=== PATIENT | female | born 2000 | race Caucasian/White ===

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

== ENCOUNTER 2020-05-14 17:07 | Emergency (ER) | payer OTHER, SELFPAY ==
[2020-05-14 17:18] VITALS: BP 122/73; PULSE 83; RESP 16; TEMP 36.1; O2SAT 100
--- NOTE | 2020-05-14 17:29 | ED.URI ---
HPI - URI/Sore Throat General Chief Complaint: Upper Respiratory Infection Stated Complaint: ear pain/sore throat Source: patient Mode of arrival: ambulatory Limitations: no limitations History of Present Illness HPI Narrative: Patient is a 19-year-old female who presents complaining of bilateral ear pain and sore throat x2 days. She denies fever, nausea, vomiting or cough. She denies known exposure to Covid. She denies taking [id number] medications for pain at this time. Patient has no significant medical history except for migraines. Related Data Home Medications Medication Instructions Recorded Confirmed Adult One Daily Multivitamin 1 cap PO DAILY 05/14/20 05/14/20 Adult Probiotic 1 tab-cap PO DAILY 05/14/20 05/14/20 B Complex-Iron 1 tab-cap PO DAILY 05/14/20 05/14/20 Co Q-10 1 tab-cap PO DAILY 05/14/20 05/14/20 Magnesia 500 mg PO DAILY 05/14/20 05/14/20 levocetirizine [Xyzal] 5 mg PO DAILY 05/14/20 05/14/20 levonorgestrel-ethinyl estrad 1 tablet PO DAILY 05/14/20 05/14/20 [Lessina] melatonin 10 mg PO DAILY 05/14/20 05/14/20 omeprazole 20 mg PO DAILY 05/14/20 05/14/20 ondansetron 4 mg PO PRN PRN 05/14/20 05/14/20 propranolol 10 mg PO BID 05/14/20 05/14/20 sumatriptan succinate 100 mg PO PRN PRN 05/14/20 05/14/20 Allergies Allergy/AdvReac Type Severity Reaction Status Date / Time Sulfa (Sulfonamide Allergy Rash Verified 05/14/20 17:27 Antibiotics) Review of Systems Review of Systems: Narrative: CONSTITUTIONAL: Denies fever, chills, or sweats. EYES: Denies visual changes, redness, or discharge. ENT: Sore throat and otalgia x2 days CARDIOVASCULAR: Denies chest pain, palpitations, or edema. RESPIRATORY: Denies cough or dyspnea. GASTROINTESTINAL: Denies abdominal pain, nausea, vomiting, or diarrhea. GENITOURINARY: Denies dysuria or hematuria. SKIN: Denies rash or itching. MUSCULOSKELETAL: Denies back pain, joint pain, or myalgia. NEUROLOGIC: Denies headache, numbness, dizziness, or weakness. PSYCHIATRIC: Denies anxiety or depression. [facility] Past Medical History Medical History (Updated 05/14/20 @ 17:48 by SHARA Alexander) Migraines No significant family history Surgical History Surgical History (Updated 05/14/20 @ 17:31 by SHARA Alexander) No significant past surgical history Family History Family History (Updated 05/14/20 @ 17:31 by SHARA Alexander) Other No significant family history Social History Social History (Updated 05/14/20 @ 17:32 by SHARA Alexander) Smoking status: Never smoker Alcohol intake: never Substance use: never Living arrangements: with roommate(s) Occupation/Education: occupation Comments At the time of signature, I have reviewed and agree with nursing past medical, surgical, social, and family history unless otherwise noted. Please see nursing chart for further information. There is no relevant family history pertinent to the presenting complaint. Exam Narrative: Exam Narrative: GENERAL: Well-appearing, well-nourished, and in no acute distress. HEAD: Normocephalic, atraumatic. EYES: EOMI. No redness or drainage. Conjunctiva are normal. ENT: Mucous membranes pink and moist. Nares clear. Positive rhinorrhea. TMs normal bilaterally. Throat erythema, edema and exudate noted. Uvula midline. NECK: AROM. Supple. Cervical lymphadenopathy noted. CHEST: No respiratory distress. HEART: Regular rate and rhythm. EXTREMITIES: Normal range of motion. No edema. SKIN: Warm, dry, no rash. NEURO: No focal deficits. Alert and oriented x3. Gait steady. PSYCH: Normal affect. No signs of depression or anxiety. Course Vital Signs Vital signs: Vital Signs Temperature 36.1 C L 05/14/20 17:18 Pulse Rate 83 05/14/20 17:18 Respiratory Rate 16 05/14/20 17:18 Blood Pressure 122/73 05/14/20 17:18 Pulse Oximetry 100 05/14/20 17:18 Temperature 36.1 C L 05/14/20 17:18 Pulse Rate 83 05/14/20 17:18 Respiratory
== END 2020-05-14 17:50 | disposition home or self-care (01) ==
PROVIDERS: Emergency Provider Nurse Practitioner
DX: J03.80 Acute tonsillitis due to other specified organisms (principal)
CPT/HCPCS: 87081; 87880; 99213; G0463

== ENCOUNTER 2020-09-01 15:49 | Emergency (ER) | payer OTHER, SELFPAY ==
[2020-09-01 15:57] VITALS: BP 118/63; PULSE 77; RESP 16; TEMP 36.9; O2SAT 98
--- NOTE | 2020-09-01 16:07 | ED.FEMALEGU ---
HPI - Female Genitourinary General Chief complaint: Urogenital-Female Stated complaint: NAUSEA/LOWER R ABD PAIN History of Present Illness HPI Narrative: This is a 19-year-old that has a chronic history of UTIs according to patient Friday she started having some abdominal pain and some burning with urination as well as some pressure. Patient initially denied any frequency but states that today she had the frequency urgency burning right-sided abdominal pain as well as nausea patient took some oral medication for nausea and it has subsided. Related Data Home Medications Medication Instructions Recorded Confirmed Adult One Daily Multivitamin 1 cap PO DAILY 05/14/20 05/14/20 Adult Probiotic 1 tab-cap PO DAILY 05/14/20 05/14/20 B Complex-Iron 1 tab-cap PO DAILY 05/14/20 05/14/20 Co Q-10 1 tab-cap PO DAILY 05/14/20 05/14/20 Magnesia 500 mg PO DAILY 05/14/20 05/14/20 levocetirizine [Xyzal] 5 mg PO DAILY 05/14/20 05/14/20 levonorgestrel-ethinyl estrad 1 tablet PO DAILY 05/14/20 05/14/20 [Lessina] melatonin 10 mg PO DAILY 05/14/20 05/14/20 omeprazole 20 mg PO DAILY 05/14/20 05/14/20 ondansetron 4 mg PO PRN PRN 05/14/20 05/14/20 propranolol 10 mg PO BID 05/14/20 05/14/20 sumatriptan succinate 100 mg PO PRN PRN 05/14/20 05/14/20 Allergies Allergy/AdvReac Type Severity Reaction Status Date / Time Sulfa (Sulfonamide Allergy Rash Verified 05/14/20 17:27 Antibiotics) Review of Systems Review of Systems: Narrative: CONSTITUTIONAL: Denies fever, chills, or sweats. EYES: Denies visual changes, redness, or discharge. ENT: Denies rhinorrhea, congestion, sore throat, or otalgia. CARDIOVASCULAR:Denies chest pain, palpitations, or edema. RESPIRATORY: Denies cough or dyspnea. GASTROINTESTINAL: Denies abdominal pain, nausea, vomiting, or diarrhea. GENITOURINARY: Reports dysuria or hematuria. SKIN:[Denies rash or itching. MUSCULOSKELETAL:Denies back pain, joint pain, or myalgia. NEUROLOGIC: Denies headache, numbness, or weakness. PSYCHIATRIC:Denies anxiety or depression PMFSH Past Medical History Medical History (Updated 09/01/20 @ 16:17 by Antonio العلي NP) Migraines No significant family history Surgical History Surgical History (Updated 05/14/20 @ 17:31 by SHARA Alexander) No significant past surgical history Family History Family History (Updated 05/14/20 @ 17:31 by SHARA Alexander) Other No significant family history Social History Social History (Updated 05/14/20 @ 17:32 by SHARA Alexander) Smoking status: Never smoker Alcohol intake: never Substance use: never Comments At time as signature, I have reviewed and agree with nursing past medical, social, surgical and family history. Please see nursing chart for further information. There is no relevant family history pertinent to the presenting complaint. Exam Narrative: Exam Narrative: GENERAL:Well-appearing, well-nourished, and in no acute distress. HEAD:Normocephalic, atraumatic. EYES: PERRLA and EOMI. ENT: Nares clear, no rhinorrhea or epistaxis. Mucous membranes moist. NECK: Supple. CHEST: Clear to auscultation. No respiratory distress. HEART: Regular rate and rhythm. No murmur heard. Normal peripheral pulses. ABDOMEN: Soft, nontender, nondistended, normal active bowel sounds. Dysuria, frequency, urgency slight nausea but has since subsided EXTREMITIES: Normal range of motion. No edema. SKIN: Warm, dry, no rash. NEURO: No focal deficits. Alert and oriented x3. Discussion with patient to make sure that she follows up quicker and not to wait so long monitor for fever Course Vital Signs Vital signs: Vital Signs Temperature 98.4 F 09/01/20 15:57 Pulse Rate 77 09/01/20 15:57 Respiratory Rate 16 09/01/20 15:57 Blood Pressure 118/63 09/01/20 15:57 Pulse Oximetry 98 09/01/20 15:57 Temperature 98.4 F 09/01/20 15:57 Pulse Rate 77 09/01/20 15:57 Respiratory Rate 16 09/01/20 15:57 Bloo
== END 2020-09-01 16:25 | disposition home or self-care (01) ==
PROVIDERS: Emergency Provider Nurse Practitioner Family
DX: N12 Tubulo-interstitial nephritis, not specified as acute or chronic (principal); N39.0 Urinary tract infection, site not specified; B96.20 Unspecified Escherichia coli [E. coli] as the cause of diseases classified elsewhere
CPT/HCPCS: 81003; 87077; 87086; 87088; 87186; 99213; G0463

== ENCOUNTER 2020-10-08 17:02 | Emergency (ER) | payer OTHER, SELFPAY ==
--- NOTE | 2020-10-08 17:08 | ED.GENADULT ---
HPI - General Adult General Chief complaint: Ear Stated complaint: sinus issues Time Seen by Provider: 10/08/20 17:09 Source: patient Mode of arrival: ambulatory Limitations: no limitations History of Present Illness HPI narrative: 19-year-old female patient presents to the [facility] with complaints of sinus issues for the past 2 days. Patient states she had a fever this morning of low 100s. Patient states she has been having pressure above the left eye and under bilateral eyes as well as pressure to the bilateral ears and congestion. Patient states she has had a little bit of coughing and slight sneezing. Patient states she took some Benadryl last night and some Tylenol this morning. Patient states she is fully vaccinated for COVID-19. Related Data Home Medications Medication Instructions Recorded Confirmed levocetirizine [Xyzal] 5 mg PO DAILY 05/14/20 05/14/20 levonorgestrel-ethinyl estrad 1 tablet PO DAILY 05/14/20 05/14/20 [Lessina] omeprazole 20 mg PO DAILY 05/14/20 05/14/20 ondansetron 4 mg PO PRN PRN 05/14/20 05/14/20 sumatriptan succinate 100 mg PO PRN PRN 05/14/20 05/14/20 Allergies Allergy/AdvReac Type Severity Reaction Status Date / Time Sulfa (Sulfonamide Allergy Rash Verified 10/08/20 17:09 Antibiotics) Review of Systems Review of Systems: Narrative: CONSTITUTIONAL: Positive subjective fever, denies chills, or sweats. EYES: Denies visual changes, redness, or discharge. ENT: Denies rhinorrhea, positive congestion, sore throat, positive bilateral otalgia. CARDIOVASCULAR: Denies chest pain, palpitations, or edema. RESPIRATORY: Positive mild nonproductive cough, denies dyspnea. GASTROINTESTINAL: Denies abdominal pain, nausea, vomiting, or diarrhea. GENITOURINARY: Denies dysuria or hematuria. SKIN: Denies rash or itching. MUSCULOSKELETAL: Denies back pain, joint pain, or myalgia. NEUROLOGIC: Positive headache, denies numbness, or weakness. PSYCHIATRIC: Denies anxiety or depression. [facility] Past Medical History Medical History Migraines No significant family history Surgical History Surgical History No significant past surgical history Family History Family History Other No significant family history Social History Social History Smoking status: Never smoker Alcohol intake: never Substance use: never Comments At the time of my signature I agree with nursing past medical history, surgical, social, and family history. There is no relevant family history pertinent to the presenting complaint. Exam Narrative: Exam Narrative: GENERAL: Well-appearing, well-nourished, and in no acute distress. HEAD: Normocephalic, atraumatic. Slight tenderness noted to maxillary sinuses on palpation EYES: PERRLA and EOMI. ENT: Nares clear, no rhinorrhea or epistaxis. Mucous membranes moist. Posterior pharynx no erythema, tonsillar Kym, exudates or lesions present. Bilateral TMs are clear with no erythema or foreign bodies in the canal. NECK: Supple. No lymphadenopathy CHEST: Clear to auscultation. No respiratory distress. HEART: Regular rate and rhythm. No murmur heard. Normal peripheral pulses. ABDOMEN: Soft, nontender, nondistended, normal active bowel sounds. EXTREMITIES: Normal range of motion. No edema. SKIN: Warm, dry, no rash. NEURO: No focal deficits. Alert and oriented x3. Course Reevaluation(s) Reevaluation #1: Reevaluated patient notified her that her Covid test as well as her strep test are negative today. Discussed with her that we will go ahead and treat her sinuses today with a daily antihistamine and a nasal steroid. Demonstrated to patient how to use a nasal steroid. Discussed with her that this should help with some of the pressure but at this time I do not thin
[2020-10-08 17:12] VITALS: BP 115/75; PULSE 117; RESP 16; TEMP 37.3; O2SAT 99
[2020-10-10 17:52] LABS: SARS-CoV-2 RNA PCR Negative
== END 2020-10-08 17:53 | disposition home or self-care (01) ==
PROVIDERS: Emergency Provider Nurse Practitioner Family
DX: J30.9 Allergic rhinitis, unspecified (principal); Z20.822 Contact with and (suspected) exposure to COVID-19
CPT/HCPCS: 87081; 87426; 87880; 99213; C9803; G0463; U0003; U0005

== ENCOUNTER 2020-11-30 18:06 | Emergency (ER) | payer OTHER, SELFPAY ==
--- NOTE | 2020-11-30 18:08 | ED.FEMALEGU ---
HPI - Female Genitourinary General Chief complaint: Urogenital-Female Stated complaint: POS UTI Time Seen by Provider: 11/30/20 18:09 Source: patient and RN notes reviewed History of Present Illness HPI Narrative: Patient is a 20-year-old female who presents the urgent care with complaints of a possible UTI. Patient states that yesterday she woke up with painful urination. Patient states it resolved and then this morning she woke up again with increased painful urination, frequency and believes she may have passed a kidney stone. Patient denies of any history of kidney stones but has had UTIs in the past to the point where she had a urologist. Patient denies of any fever, nausea, vomiting. Patient has not taken anything [id number] for his symptoms. No other acute complaints. No acute distress noted. Patient read the plan of care. Some parts of this dictation were generated by voice recognition software and may contain typographical and/or grammatical inaccuracies. MD elicited complaint: vaginal bleeding Related Data Home Medications Medication Instructions Recorded Confirmed levonorgestrel-ethinyl estrad 1 tablet PO DAILY 05/14/20 05/14/20 [Lessina] omeprazole 20 mg PO DAILY 05/14/20 05/14/20 ondansetron 4 mg PO PRN PRN 05/14/20 05/14/20 sumatriptan succinate 100 mg PO PRN PRN 05/14/20 05/14/20 Allergies Allergy/AdvReac Type Severity Reaction Status Date / Time Sulfa (Sulfonamide Allergy Rash Verified 10/08/20 17:09 Antibiotics) Review of Systems Review of Systems: CONSTITUTIONAL: Denies fever, chills, or sweats. EYES: Denies visual changes, redness, or discharge. ENT: Denies rhinorrhea, congestion, sore throat, or otalgia. CARDIOVASCULAR: Denies chest pain, palpitations, or edema. RESPIRATORY: Denies cough or dyspnea. GASTROINTESTINAL: Denies abdominal pain, nausea, vomiting, or diarrhea. GENITOURINARY: Reports of dysuria, urinary frequency, and possible kidney stone SKIN: Denies rash or itching. MUSCULOSKELETAL: Denies back pain, joint pain, or myalgia. NEUROLOGIC: Denies headache, numbness, or weakness. All other systems reviewed are negative, except as documented in HPI. [facility] Past Medical History Medical History Migraines No significant family history Surgical History Surgical History No significant past surgical history Family History Family History Other No significant family history Social History Social History Smoking status: Never smoker Alcohol intake: never Substance use: never Comments At the time of my signature, I reviewed and agree with the nursing past medical, surgical, social, and family history. There is no relevant family history pertinent to the patient complaint. Exam Narrative: GENERAL: This is a well-nourished, well-developed patient, in no apparent distress. HEAD: normocephalic, atraumatic. EYES: PERRL. Sclera clear/white. Vision is grossly intact. EARS: External ears normal NOSE: External nose normal with no obvious nasal discharge, nares without redness, no rhinorrhea. THROAT: Mucous membranes moist NECK: Neck supple CARDIOVASCULAR: Regular rate and rhythm without murmurs, gallops, or rubs. RESPIRATORY: Clear to auscultation. Breath sounds equal bilaterally. No wheezes, rales, or rhonchi. SKIN: warm, intact with no suspicious lesions or rash, good texture and turgor. NEURO: awake, alert, and oriented to person, place and time. There were no obvious focal neurologic abnormalities. EXTREMITIES: No clubbing, cyanosis, or edema. BACK: Negative bilateral CVA tenderness Course Vital Signs Vital signs: Vital Signs Temperature 97.8 F 11/30/20 18:10 Pulse Rate 76 11/30/20 18:10 Respiratory Rate 16 11/30/20 18:10 Blood Pre
[2020-11-30 18:10] VITALS: BP 124/74; PULSE 76; RESP 16; TEMP 36.6; O2SAT 99
== END 2020-11-30 18:34 | disposition home or self-care (01) ==
PROVIDERS: Emergency Provider Nurse Practitioner Family
DX: N39.0 Urinary tract infection, site not specified (principal)
CPT/HCPCS: 81003; 87086; 99213; G0463

== ENCOUNTER 2021-07-03 16:27 | Emergency (ER) | payer OTHER, SELFPAY ==
--- NOTE | ~2021-07-03 | XR_ITS ---
EXAM: XR forearm RT 2V HISTORY: PAIN/bruising radial side prox Rt forearm COMPARISON: None available FINDINGS: Normal mineralization. No fracture or dislocation. No lytic or blastic lesion. Joint space s maintained. No erosion or periosteal change. Soft tissues within normal limits. IMPRESSION: Normal right forearm radiograph findings. Reviewed, dictated and finalized at location K.
[2021-07-03 16:33] VITALS: BP 120/77; PULSE 70; RESP 16; TEMP 36.5; O2SAT 99
--- NOTE | 2021-07-03 16:37 | ED.UPPEXIN ---
HPI - Extremity Injury (Upper) General Chief Complaint: Extremity Injury, Upper Stated Complaint: INJURED R ARM Time Seen by Provider: 07/03/21 16:37 Source: patient Mode of arrival: ambulatory Limitations: no limitations History of Present Illness HPI narrative: 20-year-old female presents with complaint of bruising to right forearm. States that she hit her lotion bottle really hard on her right forearm and thinks that she has a fracture. Patient has normal range of motion to right arm. Complaining of pain with flexion of right wrist. All systems reviewed and negative except as noted above. Related Data Home Medications Medication Instructions Recorded Confirmed levonorgestrel-ethinyl estrad 1 tablet PO DAILY 05/14/20 05/14/20 [Lessina] omeprazole 20 mg PO DAILY 05/14/20 05/14/20 ondansetron 4 mg PO PRN PRN 05/14/20 05/14/20 sumatriptan succinate 100 mg PO PRN PRN 05/14/20 05/14/20 Allergies Allergy/AdvReac Type Severity Reaction Status Date / Time Sulfa (Sulfonamide Allergy Rash Verified 10/08/20 17:09 Antibiotics) Review of Systems Review of Systems: CONSTITUTIONAL: Denies fever, chills, or sweats. EYES: Denies visual changes, redness, or discharge. ENT: Denies rhinorrhea, congestion, sore throat, or otalgia. CARDIOVASCULAR: Denies chest pain, palpitations, or edema. RESPIRATORY: Denies cough or dyspnea. GASTROINTESTINAL: Denies abdominal pain, nausea, vomiting, or diarrhea. GENITOURINARY: Denies dysuria or hematuria. SKIN: Denies rash or itching. MUSCULOSKELETAL: Denies back pain, joint pain, or myalgia. Reports bruising and pain to right forearm. NEUROLOGIC: Denies headache, numbness, or weakness. PSYCHIATRIC: Denies anxiety or depression. All other systems reviewed are negative, except as documented in HPI. [facility] Past Medical History Medical History Migraines No significant family history Surgical History Surgical History No significant past surgical history Family History Family History Other No significant family history Social History Social History Smoking status: Never smoker Alcohol intake: never Substance use: never Comments At time of signature, agree with nursing past medical, surgical, social and family history. There is no relevant family history pertinent to the presenting complaint. Exam Narrative: GENERAL: This is a well-nourished, well-developed patient, in no apparent distress. HEAD: normocephalic, atraumatic. EYES: PERRL. Sclera clear/white. Vision is grossly intact. EARS: External ears normal NOSE: External nose normal . NECK: Neck supple, non-tender without lymphadenopathy, masses or thyromegaly. CARDIOVASCULAR: Regular rate and rhythm without murmurs, gallops, or rubs. RESPIRATORY: Clear to auscultation. Breath sounds equal bilaterally. No wheezes, rales, or rhonchi. SKIN: warm, Dry, intact with no suspicious lesions or rash, good texture and turgor. NEURO: awake, alert, and oriented to person, place and time. There were no obvious focal neurologic abnormalities. EXTREMITIES: No joint tenderness, effusion, or edema noted. Tenderness to proximal aspect right forearm over contusion. Range of motion intact. Right radial pulse 2+. Extrem: Elbow/forearm/wrist images: 1. Small contusion Course Course Level of Care: Express Care Visit Vital Signs Vital signs: Vital Signs Temperature 36.5 C 07/03/21 16:33 Pulse Rate 70 07/03/21 16:33 Respiratory Rate 16 07/03/21 16:33 Blood Pressure 120/77 07/03/21 16:33 Pulse Oximetry 99 07/03/21 16:33 Temperature 36.5 C 07/03/21 16:33 Pulse Rate 70 07/03/21 16:33 Respiratory Rate 16 07/03/21 16:33 Blood Pressure 120/77 07/03/21 16:33 Pulse Oximetry 99 0
== END 2021-07-03 17:00 | disposition home or self-care (01) ==
PROVIDERS: Emergency Provider Nurse Practitioner Family
DX: S50.11XA Contusion of right forearm, initial encounter (principal); W22.8XXA Striking against or struck by other objects, initial encounter
CPT/HCPCS: 73090; 99213; G0463

== ENCOUNTER 2022-02-28 17:19 | Emergency (ER) | payer OTHER, SELFPAY ==
--- NOTE | ~2022-02-28 | XR_ITS ---
XR elbow RT min 3V 02/28/2022 18:11 INDICATION: Right elbow pain PROCEDURE: 4 views right elbow COMPARISON: No prior studies for comparison. FINDINGS: Fracture, dislocation or subluxation is not identified. No significant joint effusion. The soft tissues appear within normal limits. No foreign bodies are identified. IMPRESSION: 1: NO ACUTE BONE OR JOINT ABNORMALITY IDENTIFIED. Reviewed, dictated and finalized at location [facility]
[2022-02-28 17:36] VITALS: BP 118/77; PULSE 84; RESP 16; TEMP 37.3; O2SAT 100
[2022-02-28 17:40] VITALS: BP 118/77; PULSE 84; RESP 16; TEMP 37.3; O2SAT 100
--- NOTE | 2022-02-28 18:09 | ED.UPPEXIN ---
HPI - Extremity Injury (Upper) General Chief Complaint: Extremity Injury, Upper Stated Complaint: injury to right elbow Time Seen by Provider: 02/28/22 18:15 Source: patient Mode of arrival: ambulatory Limitations: no limitations History of Present Illness HPI narrative: 21-year-old female presents with pain and bruising to right elbow. States 4 days ago she was looking her kitchen cabinets for something and hit her elbow down hard on counter. Reports pain with movement, shooting pains into hand when lifting. Noticed bruising yesterday. Range of motion and distal neurovascularly intact. All systems reviewed and negative except as noted above. Related Data Home Medications Medication Instructions Recorded Confirmed levonorgestrel-ethinyl estradiol 1 tablet PO DAILY 05/14/20 02/28/22 0.1 mg-20 mcg tablet (Lessina) ondansetron 4 mg disintegrating 4 mg PO PRN PRN Nausea 05/14/20 02/28/22 tablet sumatriptan succinate 100 mg tablet 100 mg PO PRN PRN Headache 05/14/20 02/28/22 citalopram 10 mg tablet 10 mg PO DAILY 02/28/22 02/28/22 diazepam 2 mg tablet 2 mg PO HS 02/28/22 02/28/22 dicyclomine 10 mg capsule 10 mg PO Q6H PRN Abdominal Pain 02/28/22 02/28/22 pantoprazole 40 mg tablet,delayed 40 mg PO DAILY 02/28/22 02/28/22 release propranolol 20 mg tablet 20 mg PO DAILY 02/28/22 02/28/22 ubrogepant 100 mg tablet (Ubrelvy) 100 mg PO USEASDIRECTD 02/28/22 02/28/22 Allergies Allergy/AdvReac Type Severity Reaction Status Date / Time Sulfa (Sulfonamide Allergy Rash Verified 02/28/22 17:39 Antibiotics) Review of Systems Review of Systems: CONSTITUTIONAL: Denies fever, chills, or sweats. EYES: Denies visual changes, redness, or discharge. ENT: Denies rhinorrhea, congestion, sore throat, or otalgia. CARDIOVASCULAR: Denies chest pain, palpitations, or edema. RESPIRATORY: Denies cough or dyspnea. GASTROINTESTINAL: Denies abdominal pain, nausea, vomiting, or diarrhea. GENITOURINARY: Denies dysuria or hematuria. SKIN: Denies rash or itching. MUSCULOSKELETAL: Reports pain and swelling to right elbow. NEUROLOGIC: Denies headache, numbness, or weakness. PSYCHIATRIC: Denies anxiety or depression. All other systems reviewed are negative, except as documented in HPI. PMFSH Past Medical History Medical History Migraines No significant family history Surgical History Surgical History No significant past surgical history Family History Family History Other No significant family history Social History Social History Smoking status: Never smoker Alcohol intake: never Substance use: never Comments At time of signature, agree with nursing past medical, surgical, social and family history. There is no relevant family history pertinent to the presenting complaint. Exam Narrative: GENERAL: This is a well-nourished, well-developed patient, in no apparent distress. HEAD: normocephalic, atraumatic. EYES: PERRL. Sclera clear/white. Vision is grossly intact. EARS: External ears normal NOSE: External nose normal NECK: Neck supple, non-tender without lymphadenopathy, masses or thyromegaly. CARDIOVASCULAR: Regular rate and rhythm without murmurs, gallops, or rubs. RESPIRATORY: Clear to auscultation. Breath sounds equal bilaterally. No wheezes, rales, or rhonchi. SKIN: warm, Dry, intact with no suspicious lesions or rash, good texture and turgor. NEURO: awake, alert, and oriented to person, place and time. There were no obvious focal neurologic abnormalities. EXTREMITIES: mild swelling, small contusion, tender lateral aspect R elbow Course Course Level of Care: Express Care Visit Vital Signs Vital signs: Vital Signs Temperature 37.3 C 02/28/22 17:36 Pulse Rate 84 02/28/22 17:36
== END 2022-02-28 18:30 | disposition home or self-care (01) ==
LOC: EXPGOSH 17:22
PROVIDERS: Emergency Provider Nurse Practitioner Family
DX: S50.01XA Contusion of right elbow, initial encounter (principal); W22.09XA Striking against other stationary object, initial encounter; F41.9 Anxiety disorder, unspecified
CPT/HCPCS: 73080; 99213; G0463

== ENCOUNTER 2022-05-22 18:51 | Emergency (ER) | payer OTHER, SELFPAY ==
[2022-05-22 19:00] VITALS: BP 124/82; PULSE 86; RESP 16; TEMP 37; O2SAT 100
--- NOTE | 2022-05-22 19:07 | ED.EAR ---
HPI - Ear Problem General Chief complaint: Ear Stated complaint: EARACHE Time Seen by Provider: 05/22/22 19:07 Source: patient Mode of arrival: ambulatory Limitations: no limitations History of Present Illness HPI Narrative: patient is a 21-year-old female that presents with left ear pain. states 2 months ago left ear canal was swollen shut and tender, Went away on its own. now having swelling in the same ear along with pain outside of ear. has not tried any medication. Has ENT follow-up back home in [place]. Complaint: ear pain Related Data Home Medications Medication Instructions Recorded Confirmed levonorgestrel-ethinyl estradiol 1 tablet PO DAILY 05/14/20 05/22/22 0.1 mg-20 mcg tablet ([facility]) Allergies Allergy/AdvReac Type Severity Reaction Status Date / Time Sulfa (Sulfonamide Allergy Rash Verified 05/22/22 18:57 Antibiotics) Review of Systems Review of Systems: CONSTITUTIONAL: Denies malaise, chills, sweats, or fever.? EYES: Denies visual changes, redness, or discharge.? ENT: denies rhinorrhea, congestion, sore throat.? reports left otalgia CARDIOVASCULAR: Denies chest pain, palpitations, or edema.? RESPIRATORY: Denies dyspnea and cough? GASTROINTESTINAL: Denies abdominal pain, nausea, vomiting, diarrhea? SKIN: Denies rash or itching.? MUSCULOSKELETAL: Denies myalgia.? NEUROLOGIC: Denies headache All systems reviewed & are unremarkable except as noted in HPI and below PMFSH Past Medical History Medical History Migraines No significant family history Surgical History Surgical History No significant past surgical history Family History Family History Other No significant family history Social History Social History Smoking status: Never smoker Alcohol intake: never Substance use: never Living arrangements: with roommate(s) Occupation/Education: occupation Comments At time of signature, agree with nursing past medical, surgical, social and family history. There is no relevant family history pertinent to the presenting complaint? Exam Narrative: GENERAL: Well-appearing, well-nourished, and in no acute distress.? HEAD: Normocephalic, atraumatic.? EYES: PERRLA, conjunctivae clear, and EOMI.? ENT: Nares clear, turbinates pink, no rhinorrhea or epistaxis. Mucous membranes moist. TM pearly howe with sharp light reflex bilaterally, left ear canal edema; left side tragal tenderness no pre or post articular erythema or edema. Oropharynx without erythema or lesions. Tonsils not enlarged and without exudate.? NECK: Supple. No lymphadenopathy. ? CHEST: No respiratory distress. Clear to auscultation.? No bony deformities, no asymmetry. Speaks in full sentences.? HEART: Regular rate and rhythm. SKIN: Warm, dry, no rash.? NEURO: Alert and oriented x3. No focal deficits. PSYCH: Normal mood and affect? Course Course Emergency Course: Patient is aware of diagnosis, understands and agrees to treatment plan.? Anticipatory guidance given.? Patient agrees to follow-up as directed and is aware of reasons to seek care at the emergency department.? Portions of this record may have been created with voice recognition software? Level of Care: Express Care Visit Vital Signs Vital signs: Vital Signs Temperature 37.0 C 05/22/22 19:00 Pulse Rate 86 05/22/22 19:00 Respiratory Rate 16 05/22/22 19:00 Blood Pressure 124/82 05/22/22 19:00 Pulse Oximetry 100 05/22/22 19:00 Temperature 37.0 C 05/22/22 19:00 Pulse Rate 86 05/22/22 19:00 Respiratory Rate 16 05/22/22 19:00 Blood Pressure 124/82 05/22/22 19:00 Pulse Oximetry 100 05/22/22 19:00 Reviewed Medical Decision Making MDM Narrative Medical decision making narrative: Misael
== END 2022-05-22 19:37 | disposition home or self-care (01) ==
PROVIDERS: Emergency Provider Nurse Practitioner Family
DX: H66.92 Otitis media, unspecified, left ear (principal)
CPT/HCPCS: 99213; G0463

== ENCOUNTER 2022-10-10 08:35 | Emergency (ER) | payer OTHER, SELFPAY ==
--- NOTE | 2022-10-10 08:44 | ED.GENADULT ---
HPI - General Adult General Chief complaint: Dizziness Stated complaint: LIGHT HEADED/DIZZY/STOMACH Time Seen by Provider: 10/10/22 08:52 Source: patient, RN notes reviewed and old records reviewed Mode of arrival: ambulatory Limitations: no limitations History of Present Illness HPI narrative: 21-year-old female presents to the [facility] with complaints of feeling dizzy, lightheaded, upset stomach. Patient states that started on 24 September with nausea vomiting and diarrhea. Has had intermittent dizzy spells since. Has not seek treatment. States that she currently has no symptoms. During the symptoms or spells she says the room feels like it is spinning, and she feels unsteady. Patient reports last week she felt so dizzy after leaving work that she had to sit in her car for an hour. Denies any blurry vision. Denies any shortness of breath or chest pain during episodes. Denies any that her heart feels like it is racing. Denies any headaches with episodes. Denies any recent fevers States that she had a history ear infections and feels that may be an issue but denies any ear pain Onset (ago): week(s) (2.5) Related Data Home Medications Medication Instructions Recorded Confirmed levonorgestrel-ethinyl estradiol 1 tablet PO DAILY 05/14/20 10/10/22 0.1 mg-20 mcg tablet ([facility]) Allergies Allergy/AdvReac Type Severity Reaction Status Date / Time Sulfa (Sulfonamide Allergy Rash Verified 05/22/22 18:57 Antibiotics) Review of Systems Review of Systems: All systems reviewed & are unremarkable except as noted in HPI and below Constitutional: Constitutional: Reports no additional constitutional complaints Eyes: Eyes: Reports no additional eye complaints ENT: Reports as per HPI and Reports dizziness Cardiovascular: Cardiovascular: Reports no additional cardiovascular complaints, Denies chest pain and Denies dyspnea Respiratory: Respiratory: Reports no additional respiratory complaints, Denies chest congestion, Denies cough and Denies dyspnea Gastrointestinal: Gastrointestinal: Reports no additional gastrointestinal complaints, Denies abdominal pain, Denies nausea and Denies vomiting Musculoskeletal: Musculoskeletal: Reports no additional musculoskeletal complaints Integumentary/Breasts: Skin/Breast: Reports system reviewed and no additional complaints, except as docu Neurologic: Reports system reviewed and no additional complaints, except as documented Psychiatric: Psychiatric: Reports no additional psychiatric complaints Allergic/Immunologic: Allergic/Immunologic: Reports no additional allergic/immunologic complaints PMFSH Past Medical History Medical History Migraines No significant family history Surgical History Surgical History No significant past surgical history Family History Family History Other No significant family history Social History Social History Smoking status: Never smoker Alcohol intake: never Substance use: never Living arrangements: with roommate(s) Occupation/Education: occupation Comments At the time of my signature, I reviewed and agree with the nursing past medical, surgical, social, and family history. There is no relevant family history pertinent to the patient complaint. Exam Const: General: cooperative, healthy appearing, comfortable, no acute distress, well developed, alert and well nourished Nutritional Appearance: well nourished Orientation/consciousness: patient oriented x3 Limitations: no limitations HENMT: Head: normal to inspection Ears: hearing grossly normal bilaterally, external ears normal, TM's normal bilaterally and EAC's normal Face/Nose/Sinus: Normal external nose present, Normal nares present, Normal nasal mucous membrane
[2022-10-10 08:54] VITALS: BP 104/75; PULSE 68; RESP 16; TEMP 36.7; O2SAT 100
== END 2022-10-10 09:08 | disposition home or self-care (01) ==
PROVIDERS: Emergency Provider Nurse Practitioner
DX: R42 Dizziness and giddiness (principal)
CPT/HCPCS: 99213; G0463

== ENCOUNTER 2023-01-13 17:40 | Emergency (ER) | payer OTHER, SELFPAY ==
--- NOTE | 2023-01-13 17:41 | ED.URI ---
HPI - URI/Sore Throat General Chief Complaint: Upper Respiratory Infection Stated Complaint: Sinus Infection Time Seen by Provider: 01/13/23 17:40 Source: patient Mode of arrival: ambulatory Limitations: no limitations History of Present Illness HPI Narrative: Ana Puala is a 22-year-old female patient presenting to the clinic today with complaints of a possible sinus infection x8 days. She reports she is bringing up green and yellow nasal discharge with a lot of sinus pressure and headaches. No fever or chills. Does have a lot of postnasal drip and a sore throat. MD elicited complaint: sore throat and nasal congestion Related Data Home Medications Medication Instructions Recorded Confirmed levonorgestrel-ethinyl estradiol 1 tablet PO DAILY 05/14/20 01/13/23 0.1 mg-20 mcg tablet ([facility]) fluticasone propionate 50 2 spray intranasal DAILY 01/13/23 01/13/23 mcg/actuation nasal spray,suspension Allergies Allergy/AdvReac Type Severity Reaction Status Date / Time Sulfa (Sulfonamide Allergy Rash Verified 01/13/23 17:47 Antibiotics) Review of Systems Review of Systems: Pertinent positives per HPI. Patient denies any fever, chills, rash, visual changes, dizziness, shortness of breath, chest pain, palpitations, nausea, vomiting, diarrhea, constipation, abdominal pain, or any urinary issues. PMFSH Past Medical History Medical History Migraines No significant family history Surgical History Surgical History No significant past surgical history Family History Family History Other No significant family history Social History Social History Smoking status: Never smoker Alcohol intake: never Substance use: never Living arrangements: with roommate(s) Occupation/Education: occupation Comments At the time of my signature, I reviewed and agree with the nursing past medical, surgical, social, and family history. There is no relevant family history pertinent to the patient complaint. Exam Narrative: General: Well-developed, well nourished, in no apparent distress Head: Normocephalic, atraumatic Eyes: Pupils equally round and reactive to light bilaterally, EOM intact, sclera and conjunctive clear, no discharge, lids normal Ears: TMs intact and congested, ear canals clear, no drainage, grossly hearing normal. Nose: Nares patent, yellow nasal discharge, severe inflammation, maxillary and frontal sinus tenderness. Mouth: Oropharynx red without lesions or masses, good dentition, MMM. Postnasal Neck: Supple, trachea midline, no enlargement of anterior or posterior cervical nodes, no thyroid masses or goiter palpable. Cardio: Regular rate and rhythm, s1 and s2 normal, no murmur appreciated. Resp: Clear to auscultation bilaterally anteriorly and posteriorly, no rhonchi, rales, wheezing or rubs Course Course Emergency Course: Portions of this record may have been created with voice recognition software. Level of Care: Express Care Visit Vital Signs Vital signs: Vital signs reviewed MDM - URI/Sore Throat MDM Narrative Medical decision making narrative: At the time of visit patient is resting comfortably on the exam table. I suspect patient has acute bacterial rhinosinusitis. Prescription for Augmentin and prednisone was sent to the pharmacy. Supportive measures were discussed with the patient she voiced understanding discharge instructions and agrees to treatment plan. Differential Diagnosis Differential diagnosis: Likely upper respiratory infection, otitis media, sinusitis, viral infection, bronchitis, influenza, pharyngitis and other (COVID) Discharge Plan Discharge Clinical Impression: Acute bacterial rhinosinusitis Patient Disposition:
[2023-01-13 17:44] VITALS: BP 123/80; PULSE 74; RESP 16; TEMP 36.8; O2SAT 100
[2023-01-13 17:48] VITALS: BP 123/80; PULSE 74; RESP 16; TEMP 36.8; O2SAT 100
== END 2023-01-13 17:55 | disposition home or self-care (01) ==
PROVIDERS: Emergency Provider Nurse Practitioner Family
DX: J01.90 Acute sinusitis, unspecified (principal)
CPT/HCPCS: 99213; G0463

== ENCOUNTER 2023-01-24 16:24 | Emergency (ER) | payer OTHER, SELFPAY ==
[2023-01-24 16:33] VITALS: BP 108/71; PULSE 100; RESP 16; TEMP 36.5; O2SAT 100
--- NOTE | 2023-01-24 17:19 | ED.SKABFB ---
HPI - Skin/Abscess/Foreign Bdy General Chief complaint: Skin/Abscess/Foreign Body Stated complaint: [place] infection; Yeast infection Time Seen by Provider: 01/24/23 17:19 Source: patient and RN notes reviewed Mode of arrival: ambulatory Limitations: no limitations History of Present Illness HPI narrative: 22-year-old female presented for 2 complaints. For she reports vaginal irritation with burning and itching for one week. Endorses dyspareunia and spotting after intercourse and intermittently for 3 days. Also had white milky discharge at onset. States she was on Augmentin last week. Endorses concern for yeast infection verses chlamydia. New sexual partner. Denies urinary tract infection symptoms or concern for . No otc treatment for symptoms. Reports left ear with infection at the site of a piercing. Reports she has squeezed pus from the site and now has a scab. Reports it is tender. No swelling to the ear. Piercing has been removed. Related Data Home Medications Medication Instructions Recorded Confirmed levonorgestrel-ethinyl estradiol 1 tablet PO DAILY 05/14/20 01/24/23 0.1 mg-20 mcg tablet ([facility]) fluticasone propionate 50 2 spray intranasal DAILY 01/13/23 01/24/23 mcg/actuation nasal spray,suspension Allergies Allergy/AdvReac Type Severity Reaction Status Date / Time Sulfa (Sulfonamide Allergy Rash Verified 01/24/23 16:39 Antibiotics) Review of Systems Review of Systems: CONSTITUTIONAL: Denies body aches, fever, chills, or sweats. CARDIOVASCULAR: Denies chest pain, palpitations, or edema. RESPIRATORY: Denies cough or dyspnea. GASTROINTESTINAL: Denies abdominal pain, nausea, vomiting, or diarrhea. GENITOURINARY: Reports vaginal discharge, itching; Denies dysuria, frequency, urgency, hematuria, flank pain SKIN: Denies rash, itching reports left ear wound MUSCULOSKELETAL: Denies back pain or myalgia. [facility] Past Medical History Medical History Migraines No significant family history Surgical History Surgical History No significant past surgical history Family History Family History Other No significant family history Social History Social History Smoking status: Never smoker Alcohol intake: never Substance use: never Living arrangements: with roommate(s) Occupation/Education: occupation Comments At time of signature, I have reviewed and agree with nursing past medical, surgical, social and family history unless otherwise noted. Please see nursing chart for further information. There is no relevant family history pertinent to the presenting complaint Exam Narrative: GENERAL: Well-appearing and in no acute distress. HEAD: Normocephalic EYES: EOMI. . ENT: Mucous membranes pink and moist. Left posterior outer ear with <0.5cm healing scabbed area at site of piercing hole, no fluctuance induration or drainage, mild tenderness with palpation. NECK: Normal AROM. Supple. CHEST: No respiratory distress. Clear to auscultation. HEART: Regular rate and rhythm. ABDOMEN: Soft, nontender, nondistended, normal active bowel sounds. No CVA tenderness MUSCULOSKELETAL: No bony tenderness. SKIN: Warm, dry, no rash. NEURO: No focal deficits. Alert and oriented x3. Gait steady. PSYCH: Normal affect. Course Course Emergency Course: Patient is aware of diagnosis, understands and agrees to treatment plan. Anticipatory guidance given. Patient agrees to follow-up as directed and is aware of reasons to seek care at the emergency department. Portions of this record may have been created with voice recognition software Level of Care: Express Care Visit Vital Signs Vital signs: Vital Signs Temperature 97.7 F 01/24/23 16:33 Pulse Rate
[2023-01-24 19:44] LABS: Trichomonas Vag PCR NOT DETECTED (NOT DETECTE)
[2023-01-24 20:08] LABS: Chlamydia trachomatis NOT DETECTED (NOT DETECTE); Neisseria gonorrhoeae PCR NOT DETECTED (NOT DETECTE)
== END 2023-01-24 17:52 | disposition home or self-care (01) ==
PROVIDERS: Emergency Provider Nurse Practitioner Family
DX: H60.02 Abscess of left external ear (principal); Z20.2 Contact with and (suspected) exposure to infections with a predominantly sexual mode of transmission
CPT/HCPCS: 81025; 87491; 87591; 87661; 99213; G0463

== ENCOUNTER 2023-09-03 18:16 | Emergency (ER) | payer BC, SELFPAY ==
--- NOTE | 2023-09-03 18:20 | ED.URI ---
HPI - URI/Sore Throat General Chief Complaint: Upper Respiratory Infection Stated Complaint: FEVER/HEADACHE/NECK PAIN/BACK PAIN Time Seen by Provider: 09/03/23 18:18 Source: patient Mode of arrival: ambulatory Limitations: no limitations History of Present Illness HPI Narrative: Patient is a 22-year-old female who presents with fever, headache and body aches for 1 day. Patient reports fever of 102.3. Denies any congestion, cough, sore throat, nausea, vomiting, diarrhea. Patient has taken Tylenol. Related Data Home Medications Medication Instructions Recorded Confirmed levonorgestrel-ethinyl estradiol 1 tablet PO DAILY 05/14/20 09/03/23 0.1 mg-20 mcg tablet ([facility]) Allergies Allergy/AdvReac Type Severity Reaction Status Date / Time Sulfa (Sulfonamide Allergy Rash Verified 01/24/23 16:39 Antibiotics) Review of Systems Review of Systems: All systems reviewed & are unremarkable except as noted in HPI and below Constitutional: Constitutional: Reports body ache(s), Denies chills, Denies fatigue, Reports fever(s), Reports headache(s), Denies malaise and Denies weakness Eyes: Eyes: Denies blurry vision, Denies itchy eyes and Denies loss of vision ENT: Denies otalgia, Denies headache(s), Denies nasal congestion, Denies sinus pain and Denies sore throat Cardiovascular: Cardiovascular: Denies chest pain, Denies irregular heart rhythm and Denies dyspnea Respiratory: Respiratory: Denies cough and Denies dyspnea Gastrointestinal: Gastrointestinal: Denies abdominal pain, Denies diarrhea, Denies nausea and Denies vomiting Musculoskeletal: Musculoskeletal: Denies back pain, Denies myalgias and Denies arthralgias Integumentary/Breasts: Skin/Breast: Denies pruritus and Denies rash Neurologic: Denies headache(s), Denies loss of vision and Denies weakness Psychiatric: Psychiatric: Reports no additional psychiatric complaints Endocrine: Endocrine: Denies fatigue Allergic/Immunologic: Allergic/Immunologic: Denies itchy eyes PMFSH Past Medical History Medical History Migraines No significant family history Surgical History Surgical History No significant past surgical history Family History Family History Other No significant family history Social History Social History Smoking status: Never smoker Alcohol intake: never Substance use: never Living arrangements: with roommate(s) Occupation/Education: occupation Comments At time of signature, agree with nursing past medical, surgical, social and family history. There is no relevant family history pertinent to the presenting complaint. Exam Const: General: cooperative, healthy appearing, comfortable, no acute distress and well nourished Nutritional Appearance: well nourished Orientation/consciousness: patient oriented x3 Limitations: no limitations HENMT: Head: normal to inspection, normocephalic and atraumatic Ears: hearing grossly normal bilaterally, external ears normal, TM's normal bilaterally, EAC's normal and no periauricular adenopathy Face/Nose/Sinus: Normal external nose present, Abnormal mucous membranes and turbinates present erythematous bilateral and diffuse, normal facial exam, sinuses nontender and face symmetric Face and sinus: normal facial exam, sinuses nontender and face symmetric Mouth: Yes Normal oral and palatal mucosa present, Yes lip normal, Yes tongue normal, Yes Normal salivary glands and ducts present, Yes oropharynx normal and Yes moist mucous membranes Teeth and gingiva: dentition normal Throat: posterior oropharynx normal, tonsils normal and uvula midline Eyes: General: appearance normal, both eyes and all related structures Alignment and Position: alignment normal and position normal Perior
[2023-09-03 18:31] VITALS: BP 105/69; PULSE 116; RESP 14; TEMP 37.7; O2SAT 100
== END 2023-09-03 19:15 | disposition home or self-care (01) ==
PROVIDERS: Emergency Provider Nurse Practitioner Family
DX: B34.9 Viral infection, unspecified (principal); Z20.822 Contact with and (suspected) exposure to COVID-19
CPT/HCPCS: 87426; 87804; 99213; G0463